=== PATIENT | female | born 1975 | race Caucasian/White ===

== ENCOUNTER 2018-06-11 08:46 | Emergency (ER) | payer OTHER ==
--- NOTE | 2018-06-11 09:42 | PDOC ---
History of Present Illness - General Chief Complaint: Palpitations Stated Complaint: PALPITATIONS Time Seen by Provider: 06/11/18 09:09 History Source: Patient Exam Limitations: No Limitations - History of Present Illness Initial Comments: 06/11/18 09:31 42 yo F pmh of anxiety, panic attacks, HTN, arthritis and fibromyalgia (on hydrocodone) presents to the ED with likely panic attack. Pt states she recently started Kratom (natural substance for anxiety and pain) at 7 30 am while scrolling through [employer] and side affects of Kratom suddenly had whole body warmth, muscle stiffness, shaking and an inability to ambulate. Pt states her prior panic attacks are similar however not as severe and this is the first time she had difficulty with ambulation. Denies any other stressors (happy with work/life balance) CP, SOB, new back pain, N/V/F/C, recent illness/travel or changes in bowel/bladder habits. Of note, pts PCP recently , pt has not had BP medications in over 2 weeks. Past History - Past Medical History Allergies/Adverse Reactions: Allergies Allergy/AdvReac Type Severity Reaction Status Date / Time Penicillins Allergy Verified 06/11/18 10:22 Home Medications: Ambulatory Orders Alprazolam [Xanax] 1 tab PO BID PRN #5 tablet MDD 2 tabs 06/11/18 Citalopram Hydrobromide [Citalopram HBr] 20 mg PO DAILY 06/11/18 Review of Systems - Review of Systems Constitutional: Yes: Other (muscle stiffiness, warmth and difficulty ambulating) . No: Chills, Fever HEENTM: No: Blurred Vision, Double Vision Respiratory: No: Shortness of Breath Cardiac (ROS): No: Chest Pain, Lightheadedness, Palpitations, Syncope ABD/GI: No: Constipated, Diarrhea, Nausea, Vomiting : No: Burning, Dysuria, Discharge, Frequency, Flank Pain Musculoskeletal: No: Back Pain Neurological: Yes: Unsteady Gait, Ataxia. No: Headache, Numbness, Tingling, Weakness *Physical Exam - Physical Exam General Appearance: Yes: Nourished, Appropriately Dressed. No: Apparent Distress HEENT: positive: EOMI, NARINDER, Normal Voice, Hearing Grossly Normal Neck: positive: Supple. negative: Carotid bruit, Tender lateral, Tender midline Respiratory/Chest: positive: Lungs Clear, Normal Breath Sounds. negative: Accessory Muscle Use, Crackles, Rales, Rhonchi, Stridor, Wheezing Cardiovascular: positive: Regular Rhythm, Regular Rate, S1, S2. negative: Edema , JVD, Murmur Vascular Pulses: Dorsalis-Pedis (R): 4+, Doralis-Pedis (L): 4+ Gastrointestinal/Abdominal: positive: Flat, Soft. negative: Pulsatile Mass, Distended, Guarding, Rebound, Tenderness Musculoskeletal: negative: CVA Tenderness Extremity: positive: Normal Capillary Refill, Normal Inspection, Normal Range of Motion Integumentary: positive: Normal Color, Dry, Warm Neurologic: positive: maintenance mechanic helper II-XII NML intact, Fully Oriented, Alert, Normal Mood/ Affect, Normal Response, Motor Strength 07/21 Medical Decision Making - Medical Decision Making 06/11/18 11:08 42 yo female presents with likely panic attack after becoming suddenly stressed out this am. Pt shaking and states she feels warm with muscle stiffness EKG NSR, no ST elevations or depressions Trial of Xanax in the ED to determine whether or not blood work is indicated pt dramatically improved after 0.5 mg of Xanax. Pt ambulating well while in the ED Pt expresses belief that she has suffered another panic attack today and in the past has intermittently required Xanax which helps relieve s/s Pt NAD, AOX3 safe for DC home Pt does not have PCP in the area, will refer her to [facility] for further primary care Pt agrees with and understands plan. *DC/Admit/Observation/Transfer Diagnosis at time of Disposition: Panic attack - Discharge Dispostion Disposition: HOME Condition at time of disposition: Good Decision to Admit order: No - Prescriptions Prescriptions: Alprazolam [Xanax] 1 tab PO BID PRN #5 tablet MDD 2 tabs PRN Reason: Anxiety - Referrals [place] [facility] [place] [facility] [place] Group] - Patient Instructions Printed Discharge Instructions: DI for Anxiety -- Adult, DI for Panic Disorder Additional Instructions: You will receive a call from the [facility] within the next 48 hours for an appointment. Please see your Psychiatrist within the next 48 hours. Please continue taking your home dosed medications as prescribed. Return to the ER for new or concerning symptoms including but not limited to: chest pain, difficulty breathing, loss of consciousness, headaches,, weakness or sensory deficits on 1 side of your body, high fevers. Thank you - Post Discharge Activity
[2018-06-11 09:53] VITALS: TEMP 98.2; BMI 30.1
[2018-06-11] MEDS ORDERED: ALPRAZolam 0.25 MG TABLET PO PRN (10:16)
--- NOTE | 2018-06-11 11:12 | PDOC ---
Attending Attestation - Resident Resident Name: Mc Reynoso - ED Attending Attestation I have performed the following: I have examined & evaluated the patient, The case was reviewed & discussed with the resident, I agree w/resident's findings & plan - HPI HPI: 06/11/18 11:08 Healthy 42-year-old female with history of anxiety disorder on citalopram, recently started an herbal anxiolytic and while reading about the side effects this morning she developed a panic attack. Typical sxs of nausea, sweating, palpitations, trembling so she activated EMS. no recent depression/si/hi - Physicial Exam PE: 06/11/18 11:10 vss much better now, initially still a bit anxious but received xanax and now resolved perrl, eomi heart regular, lungs clear abd soft neuro normal - Medical Decision Making 06/11/18 11:11 42-year-old female with history of anxiety and panic attacks presents with panic attack with trigger. Symptoms improved/resolved, no other acute psychiatric concerns. We'll refer to PCP Understands risks of increasing frequency of benzo and preference to adjust baseline site helipad dosing if necessary EKG normal <Carlos Bland - Last Filed: 06/11/18 11:07> - HPI HPI: 06/11/18 11:13 The patient is a 42 year old female, with a significant past medical history of anxiety, panic attacks, hypertension, fibromyalgia, who presents to the emergency department with sudden onset of body stiffness, shaking, and feeling flushed while reading side effects of an herbal supplement she started taking for her anxiety this morning. She denies new stressors. She states she has not had her BP medications in 2 weeks because her PCP . The patient denies chest pain, shortness of breath, headache and dizziness. The patient denies fever, chills, nausea, vomit, diarrhea and constipation. The patient denies dysuria, frequency, urgency and hematuria. Allergies: Penicillins <Geetha Vincent - Last Filed: 06/11/18 11:14> Heart Score/ECG Review #1 ECG reviewed & interpreted by me at: 08:58 General ECG Interpretation: Sinus Rhythm, Normal Rate (90), Normal Intervals ( qtc 447), No acute ischemic changes <Carlos Bland - Last Filed: 06/11/18 11:07> Attestations - Attestations 06/11/18 11:14 Documentation prepared by Geetha Vincent, acting as medical assisting program director for Carlos Bland MD <Geetha Vincent - Last Filed: 06/11/18 11:14>
[2018-06-11 12:27] VITALS: BP 134/88; PULSE 91
--- NOTE | 2018-06-11 22:00 | EKG ---
Test Reason : Blood Pressure : / mmHG Vent. Rate : 090 BPM Atrial Rate : 090 BPM P-R Int : 132 ms QRS Dur : 092 ms QT Int : 366 ms P-R-T Axes : 036 005 011 degrees QTc Int : 447 ms NORMAL SINUS RHYTHM NORMAL ECG NO PREVIOUS ECGS AVAILABLE Confirmed by MD TOMAS, KENYETTA ([id number]) on 06/11/2018 10:00:05 PM Referred By: Confirmed By:KENYETTA MARIN MD
== END 2018-06-11 12:27 | disposition home or self-care (01) ==
LOC: JER 08:46
DX: F41.0 Panic disorder [episodic paroxysmal anxiety] (principal); F41.9 Anxiety disorder, unspecified; I10 Essential (primary) hypertension; M12.9 Arthropathy, unspecified; M79.7 Fibromyalgia
CPT/HCPCS: 93005; 93010; 99282-25

== ENCOUNTER 2018-11-25 08:47 | Emergency (ER) | payer OTHER ==
[2018-11-25 08:51] VITALS: BMI 28.8
[2018-11-25] MEDS ORDERED: MAG HYDROX/AL HYDROX/SIMETH 30 ML UNIT-DOSE CUP PO ONE (10:11)
[2018-11-25] MEDS ORDERED: DICYCLOMINE HCL 20 MG TABLET PO ONE (10:11)
[2018-11-25] MEDS ORDERED: LIDOCAINE VISCOUS 2% ORAL/TOP 100 ML BOTTLE MM ONE (10:12)
[2018-11-25] MEDS ORDERED: DICYCLOMINE HCL 10 MG CAPSULE ONE (10:25)
[2018-11-25] MEDS ORDERED: LIDOCAINE VISCOUS 2% ORAL/TOP 20 ML UNIT-DOSE CUP ONE (10:26)
[2018-11-25] MEDS ORDERED: MAG HYDROX/AL HYDROX/SIMETH 30 ML UNIT-DOSE CUP ONE (10:27)
[2018-11-25 10:48] LABS: PH,URINE 7.5 (5.0-8.0); URINE APPEARANCE CLEAR; URINE BILIRUBIN NEGATIVE (NEGATIVE); URINE COLOR YELLOW; URINE GLUCOSE (UA) NEGATIVE (NEGATIVE); URINE KETONE NEGATIVE (NEGATIVE); URINE LEUK ESTERASE NEGATIVE (NEGATIVE); URINE NITRITE NEGATIVE (NEGATIVE); URINE PROTEIN NEGATIVE (NEGATIVE); URINE UROBILINOGEN 0.2 mg/dL (0.2-1.0)
[2018-11-25 11:16] LABS: ALBUMIN 3.9 g/dl (3.4-5.0); BILIRUBIN,TOTAL 0.9 mg/dL (0.2-1); BLOOD UREA NITROGEN 11.2 mg/dL (7-18); CREATININE 0.6 mg/dL (0.55-1.3); POTASSIUM 4.5 mmol/L (3.5-5.1); TOT PROT 7.4 g/dl (6.4-8.2)
[2018-11-25 11:31] LABS: BASO % 0.9 % (0-2.0); EOS % 2.3 % (0-4.5); HEMOGLOBIN 12.4 GM/dL (10.7-15.3); LYMPH % 28.6 % (8-40); MCH 30.2 pg (25.7-33.7); MCHC 33.5 g/dl (32.0-36.0); MEAN PLT VOLUME 8.1 fl (7.5-11.1); MONO % 5.2 % (3.8-10.2); PLATELET COUNT 312 K/MM3 (134-434); RBC 4.11 M/mm3 (3.60-5.2); RDW 12.9 % (11.6-15.6); WHITE BLOOD COUNT 5.2 K/mm3 (4.0-10.0)
--- NOTE | 2018-11-25 11:52 | PDOC ---
Documentation entered by Manoj Luevano SCRIBE, acting as scribe for Raymon Terrell MD. Raymon Terrell MD: This documentation has been prepared by the Chloé lopez Xhesika, SCRIBE, under my direction and personally reviewed by me in its entirety. I confirm that the documentation accurately reflects all work, treatment, procedures, and medical decision making performed by me. History of Present Illness - General Chief Complaint: Pain, Acute Stated Complaint: ABD PAIN Time Seen by Provider: 11/25/18 10:02 History Source: Patient Exam Limitations: No Limitations - History of Present Illness Initial Comments: 11/25/18 10:16 The patient is a 43 year old female with a PMH of anemia, HTN, fibromyalgia, scoliosis and arthritis who presents to the ED with 2 weeks of LUQ pain and epigastric pain. Patient describes her pain as 8-9/10 in severity, intermittent , stabbing pain, that radiates up to her back and is worsened with meals. Patient states every night when she has dinner her symptoms occur several hours later. Patient notes she took hydrocodone with mild relief of symptoms. The patient denies chest pain, shortness of breath, headache and dizziness. Denies fever, chills, cough, nausea, vomiting, diarrhea and constipation. Denies dysuria, urgency and hematuria. Allergies:,Penicillins Social Hx: Denies current smoking, drinking, or other substance usage. Neurologist: [facility] [place] Past History - Past Medical History Allergies/Adverse Reactions: Allergies Allergy/AdvReac Type Severity Reaction Status Date / Time Penicillins Allergy Verified 11/25/18 08:51 Home Medications: Ambulatory Orders Citalopram Hydrobromide [Citalopram HBr] 40 mg PO HS 06/11/18 Amlodipine/Atorvastatin [Amlodipine-Atorvast 10-10 mg] 1 each PO DAILY 11/25/18 Hydrocodone/Acetaminophen [Hydrocodon-Acetaminophn 10-325] 1 each PO QID Omeprazole 20 mg PO DAILY #30 tablet. 11/25/18 COPD: No HTN: Yes Psychiatric Problems: Yes - Suicide/Smoking/Psychosocial Hx Smoking History: Never smoked Have you smoked in the past 12 months: No Hx Alcohol Use: No Drug/Substance Use Hx: No Review of Systems - Review of Systems Able to Perform ROS?: Yes Comments:: 11/25/18 10:18 A complete review of 10 out of 10 review of systems is taken and is negative apart from what is previously mentioned below and in the HPI. *Physical Exam - Vital Signs Last Vital Signs Temp Pulse Resp BP Pulse Ox 98.3 F 69 16 119/86 97 11/25/18 08:49 11/25/18 08:49 11/25/18 08:49 11/25/18 08:49 11/25/18 08:49 - Physical Exam Comments: 11/25/18 10:18 Vitals: Triage Vital signs reviewed General Appearance: no acute distress, well nourished well developed, Head: Atraumatic, normocephalic Cardiac: Regular rate and rhythm, no murmurs, no rubs, no gallops, Lungs: Clear to auscultation bilaterally, good air movement bilaterally, Abdomen: (+) Epigastric discomfort. Soft, nondistended, normal bowel sounds. Extremities: Full range of motion to all extremities, no cyanosis, clubbing, or edema Skin: Warm and dry, no rashes or lesions, no petechiae Neuro: AOX3; Cranial Nerves 2-12 grossly c intact, Strength intact to all extremities, Sensation intact to all extremities, gait normal Psych: normal mood, normal affect ED Treatment Course - LABORATORY CBC & Chemistry Diagram: 11/25/18 10:33 11/25/18 10:33 - ADDITIONAL ORDERS Additional order review: Laboratory Results 11/25/18 11/25/18 11/25/18 10:35 10:33 10:33 Sodium 140 Potassium 4.5 Chloride 102 Carbon Dioxide 30 Anion Gap 9 BUN 11.2 Creatinine 0.6 Est GFR (CKD-EPI)AfAm 127.58 Est GFR (CKD-EPI)NonAf 110.08 Random Glucose 90 Calcium 9.0 Total Bilirubin 0.9 AST 37 ALT 38 Alkaline Phosphatase 64 Total Protein 7.4 Albumin 3.9 Lipase 160 Urine Color Yellow Urine Appearance Clear Urine pH 7.5 Ur Specific [place] 1.016 Urine Protein Negative Urine Glucose (UA) Negative Urine Ketones Negative Urine Blood Negative Urine Nitrite Negative Urine Bilirubin Negative Urine Urobilinogen 0.2 Ur Leukocyte Esterase Negative 11/25/18 10:33 RBC 4.11 MCV 90.0 MCHC 33.5 RDW 12.9 MPV 8.1 Neutrophils % 63.0 Lymphocytes % 28.6 Monocytes % 5.2 Eosinophils % 2.3 Basophils % 0.9 - Medications Given in the ED: ED Medications Discontinued Medications Generic Name Dose Route Start Last Admin Trade Name Frieda PRN Reason Stop Dose Admin Al Hydroxide/Mg Hydroxide 30 ml 11/25/18 10:11 11/25/18 10:34 Mylanta Oral Suspension - PO 11/25/18 10:12 30 ml ONCE ONE Administration Dicyclomine HCl 20 mg 11/25/18 10:11 11/25/18 10:34 Bentyl - PO 11/25/18 10:12 20 mg ONCE ONE Administration Lidocaine HCl 15 ml 11/25/18 10:12 11/25/18 10:34 Xylocaine 2% Viscous MM 11/25/18 10:13 15 ml ONCE ONE Administration Medical Decision Making - Medical Decision Making 11/25/18 11:43 2 week history of abdominal discomfort worse after meals worse in the evening Very mild epigastric discomfort on examination status post GI cocktail patient feels better will arrange for patient to follow-up with gastroenterology as well as in her medicine clinic. She will be placed on a weeklong course of omeprazole as well as Maalox Findings, the need for follow-up and strict return instructions discussed with patient. *DC/Admit/Observation/Transfer Diagnosis at time of Disposition: Abdominal pain Qualifiers: Abdominal location: epigastric Qualified Code(s): R10.13 - Epigastric pain - Discharge Dispostion Disposition: HOME Condition at time of disposition: Fair Decision to Admit order: No - Referrals Ref[place]: [facility] [place] [facility] [place] Group] Ridge Laird MD [Staff Physician] - - Patient Instructions Printed Discharge Instructions: DI for Dyspepsia Additional Instructions: Take omeprazole as prescribed. Take gooi-bun-emezryl Maalox as directed on package. Follow-up with Dr. Laird gastroenterology within 1 week. Follow-up with the [facility] this week. Return to the emergency department for any severe worsening symptoms or for any concerns. - Post Discharge Activity
[2018-11-25 13:21] VITALS: BP 115/67; PULSE 67; TEMP 98.1
== END 2018-11-25 13:19 | disposition home or self-care (01) ==
LOC: JER 08:47
DX: R10.13 Epigastric pain (principal); I10 Essential (primary) hypertension; D64.9 Anemia, unspecified; M79.7 Fibromyalgia; M12.9 Arthropathy, unspecified; M41.9 Scoliosis, unspecified
CPT/HCPCS: 36415; 80053; 81003; 83690; 85025; 87086; 99284-25

== ENCOUNTER 2019-12-11 16:36 | Emergency (ER) | payer OTHER ==
[2019-12-11 16:44] VITALS: BP 120/80; PULSE 80; TEMP 98.4; BMI 36.6
--- OUTSIDE RECORDS SUMMARY | 2019-12-11 17:07 | XMS ---
:1975 Author Organization [facility] Care Team Providers Name Role Phone Parris Huitron MD Unavailable Unavailable Regina Bedolla MD Unavailable Unavailable Re-disclosure Warning The records that you are about to access may contain information from federally- assisted alcohol or drug abuse programs. If such information is present, then the following federally mandated warning applies: This information has been disclosed to you from records protected by federal confidentiality rules (42 CFR part 2). The federal rules prohibit you from making any further disclosure of this information unless further disclosure is expressly permitted by the written consent of the person to whom it pertains or as otherwise permitted by 42 CFR part 2. A general authorization for the release of medical or other information is NOT sufficient for this purpose. The Federal rules restrict any use of the information to criminally investigate or prosecute any alcohol or drug abuse patient.The records that you are about to access may contain highly sensitive health information, the redisclosure of which is protected by Article 27-F of the [facility] Public Health law. If you continue you may haveaccess to information: Regarding HIV / AIDS; Provided by facilities licensed or operated by the [facility] Office of Mental Health; or Provided by the [facility] Office for People With Developmental Disabilities. If such information is present, then the following [facility] mandated warning applies: This information has been disclosed to you from confidential records which are protected by state law. State law prohibits you from making any further disclosure of this information without the specific written consent of the person to whom it pertains, or as otherwise permitted by law. Any unauthorized further disclosure in violation of state law may result in a fine or fpc sentence or both. A general authorization for the release of medical or other information is NOT sufficient authorization for further disclosure. Encounters Encounter Providers Location Date Indications Data Source(s ) Outpatient Attender: Parris 12/04/2019 PEL/TV FOLLOWED BY Bianka Huitron MD 04:00:00 PM SCREENING M/S RX H ospital EDT [facility] PEL/TV FOLLOWED BY SCREENING M/S RX [facility] Outpatient Attender: Parris 11/21/2019 04:00:00 JEYSON Huitron MD PM EDT [facility] Outpatient Attender: Parris 11/18/2019 04:00:00 [facility] Bianka Huitron MD PM EDT [facility] Outpatient Attender: Parris 11/14/2019 04:00:00 JEYSON [place] [facility] Bianka Huitron MD PM EDT [facility] Outpatient Attender: Parris 11/11/2019 04:30:00 JEYSON Huitron MD PM EDT [facility] Outpatient Attender: [place] 11/07/2019 05:00:00 RAD[facility] Bianka Huitron MD PM EDT [facility] Outpatient Attender: Parris 03/14/2019 04:00:00 [facility] IR[facility] DEF Bianka Huitron MD PM EST [facility] Outpatient Attender: Parris 03/11/2019 04:00:00 JEYSON [facility] DEF Bianka Huitron MD PM EST [facility] Outpatient Attender: Parris 03/06/2019 04:00:00 [facility] Bianka Huitron MD [facility] Outpatient Attender: Parris 03/04/2019 10:30:00 [facility] Bianka Huitron MD [facility] Outpatient Attender: Parris 02/28/2019 11:09:00 [facility] Bianka Huitron MD [facility] Outpatient Attender: Parris 08/08/2018 04:30:00 [facility] Bianka Huitron MD PM EDT Hospital [facility] Outpatient Attender: Parris 08/06/2018 07:37:00 [facility] Bianka Huitron MD PM EDT [facility] Hospital [facility] P Attender: Parris 08/06/2018 07:31:00 [facility] Bianka Huitron MD PM EDT [facility] Hospital [facility] Admission cancelled. Disregard status an d admitted date. Outpatient Attender: Parris 08/02/2018 02:00:00 [facility] Bianka Huitron MD PM EDT [facility] Hospital [facility] Outpatient Attender: Parris 07/30/2018 12:00:00 [facility] Bianka Huitron MD PM EDT [facility] Hospital [facility] Outpatient Attender: Parris 07/26/2018 04:30:00 [facility] Bianka Huitron MD PM EDT [facility] Hospital [facility] Outpatient Attender: Regina 07/19/2018 03:00:00 2 [facility] Bianka Bedolla MD PM EDT Hospital 2 [facility] Outpatient Attender: Regina 07/18/2018 05:38:00 [facility] Bedolla MD PM EDT Hospital [facility] Insurance Providers Payer name Policy type Policy ID Covered Covered libertarian's Policy P hanna / Coverage libertarian ID relationship to [place] Inf ormation type lower[place] [id number] PT [id number] HEALTH PLAN POS [place] [id number] PT [id number] 1 HEALTH PLAN O [place] [id number] 1 HEALTH PLANS [place] [id number] PT [id number] 1 [place] [id number] 1 [id number] [place] [id number] HEALTH PLANS Problems, Conditions, and Diagnoses Code Display Name Description Problem Type Effective Dates Data Source(s) K90.9 Intestinal K90.9 Diagnosis 12/04/2019 [place] malabsorption, 04:00:00 PM EDT Hospi abby unspecified D50.8 Other iron D50.8 Diagnosis 12/04/2019 [place] deficiency anemias 04:00:00 PM EDT H ospital N92.0 Excessive and N92.0 Diagnosis 12/04/2019 [place] frequent 04:00:00 PM EDT Hospital menstruation with regular cycle D50.9 Iron deficiency D50.9 Diagnosis 12/04/2019 [place] anemia, unspecified 04:00:00 PM EDT Hospital N63.23 Unspecified lump in N63.23 Diagnosis 12/04/2019 [place] the left breast, 04:00:00 PM EDT Hos pital lower outer quadrant R92.1 Mammographic R92.1 Diagnosis 12/04/2019 [place] calcification found 04:00:00 PM EDT Hospital on diagnostic imaging of breast Z12.31 Encounter for Z12.31 Diagnosis 12/04/2019 [place] screening mammogram 04:00:00 PM EDT Hospital for malignant neoplasm of breast Z88.2 Allergy status to Z88.2 Diagnosis 11/11/2019 [place] sulfonamides status 07:51:00 AM EDT Hospital Z87.891 Personal history of Z87.891 Diagnosis 11/11/2019 [place] nicotine dependence 07:51:00 AM EDT Hospital I10 Essential (primary) I10 Diagnosis 11/11/2019 [place] hypertension 07:51:00 AM EDT Hospita l Z98.84 Bariatric surgery Z98.84 Diagnosis 02/28/2019 [place] status 11:09:00 AM EST Hospital R53.82 Chronic fatigue, R53.82 Diagnosis 08/02/2018 [place] unspecified 02:00:00 PM EDT Hospital D64.9 Anemia, unspecified D64.9 Diagnosis 07/26/2018 [place] 08:24:00 AM EDT Hospital N94.6 Dysmenorrhea, N94.6 Diagnosis 07/18/2018 [place] unspecified 05:38:00 PM EDT Hospital
[2019-12-11] MEDS ORDERED: FAMOTIDINE 20 MG/50 ML IVPB 20 MG/50 ML MG IVPB ONE ×2 (17:42→17:51)
[2019-12-11] MEDS ORDERED: LIDOCAINE VISCOUS 2% ORAL/TOP 20 ML UNIT-DOSE CUP MM ONE (17:43)
[2019-12-11] MEDS ORDERED: MAG HYDROX/AL HYDROX/SIMETH 30 ML UNIT-DOSE CUP PO ONE (17:43)
[2019-12-11] MEDS ORDERED: SODIUM CHLORIDE 0.9% 500 ML INFUS.BAG IV ONE (17:44)
[2019-12-11] MEDS ORDERED: MAG HYDROX/AL HYDROX/SIMETH 30 ML UNIT-DOSE CUP ONE (17:51)
[2019-12-11] MEDS ORDERED: LIDOCAINE VISCOUS 2% ORAL/TOP 20 ML UNIT-DOSE CUP ONE (17:51)
--- NOTE | 2019-12-11 17:58 | PDOC ---
History of Present Illness - General Chief Complaint: Pain Stated Complaint: PAIN Time Seen by Provider: 12/11/19 17:09 History Source: Patient Exam Limitations: No Limitations - History of Present Illness Initial Comments: 12/11/19 [id number] 44-year-old female history of gastric bypass, anemia requiring weekly infusions, fibromyalgia, scoliosis, gastritis presents complaining of midepigastric pain radiating to the back, midsternal chest burning sensation x 2 days with nausea and 2 episodes of nonbloody vomiting. Denies diarrhea, fever, chills, cough, urinary complaints or any other symptoms. Patient took 1 Pepcid 20 mg p.o. this morning. ROS: as above PE: GENERAL: well-appearing, NAD HEAD: NCAT EYES: Pupils equal, round and reactive to light, sclera anicteric, conjunctiva clear ENT: pharynx: no erythema, no exudate, uvula midline NECK: supple CHEST: nontender RESP: clear, no w/r/r CARDIO: rrr, no m/g/r ABD: +BS, soft, midpepigastric ttp, no r/g BACK: no midline spinal ttp, no CVAT EXTREMITIES: Normal range of motion, no edema NEUROLOGICAL: Normal speech, normal gait SKIN: Warm, Dry Is this a multiple visit Asthma Patient?: No Past History - Medical History Allergies/Adverse Reactions: Allergies Allergy/AdvReac Type Severity Reaction Status Date / Time Penicillins Allergy Verified 12/11/19 17:44 Home Medications: Ambulatory Orders Citalopram Hydrobromide [Citalopram HBr] 40 mg PO HS 06/11/18 Amlodipine/Atorvastatin [Amlodipine-Atorvast 10-10 mg] 1 each PO DAILY 11/25/18 Hydrocodone/Acetaminophen [Hydrocodon-Acetaminophn 10-325] 1 each PO QID 11/25/18 Omeprazole 20 mg PO DAILY #30 tablet. 11/25/18 COPD: No HTN: Yes Psychiatric Problems: Yes - Reproductive History Is Patient Now?: No - Psycho-Social/Smoking History Smoking History: Never smoked Have you smoked in the past 12 months: No - Substance Abuse Hx (Audit-C & DAST Scrn) How often the patient has a drink containing alcohol: Monthly or less Number of drinks the patient has on a typical day: 1 or 2 Score: In Men: 4 or > Positive; In Women: 3 or > Positive: 1 Screen Result (Pos requires Nsg. Audit-10AR): Negative In the last yr the pt used illegal drug/Rx for NonMed reason: No Score: Yes response is considered Positive: 0 Screen Result (Positive result requires Nsg. DAST-10): Negative *Physical Exam - Vital Signs Last Vital Signs Temp Pulse Resp BP Pulse Ox 98.4 F 80 18 120/80 100 12/11/19 16:41 12/11/19 16:41 12/11/19 16:41 12/11/19 16:41 12/11/19 16:41 ED Treatment Course - LABORATORY CBC & Chemistry Diagram: 12/11/19 18:00 12/11/19 18:00 - RADIOLOGY Radiology Studies Ordered: Category Date Time Status CHEST PA & LAT [RAD] Stat Radiology 12/11/19 17:44 Ordered Medical Decision Making - Medical Decision Making 12/11/19 17:58 44-year-old female history of gastric bypass, anemia requiring weekly infusions, fibromyalgia, scoliosis, gastritis presents complaining of midepigastric pain radiating to the back, midsternal chest burning sensation x 2 days with nausea and 2 episodes of nonbloody vomiting. Denies diarrhea, fever, chills, cough, urinary complaints or any other symptoms. Patient took 1 Pepcid 20 mg p.o. this morning. IV pepcid, po maalox, viscous lidocaine IVF labs urine cxr re assess 12/11/19 19:37 Patient feels better after p.o. medication Discussed labs with patient Chest x-ray unremarkable on my wet read Patient stable for discharge Agrees to follow-up with PMD and schedule GI appointment Advised to take omeprazole 20 mg daily for 7 days Return precautions discussed Discharge - Discharge Information Problems reviewed: Yes Clinical Impression/Diagnosis: Midepigastric pain Condition: Stable Disposition: HOME - Admission No - Follow up/Referral - Patient Discharge Instructions Additional Instructions: Follow-up with GI doctor within 1 week Take omeprazole 20 mg daily for 7 days Return to ED if fever, chills, abdominal bloating, worsening abdominal pain, chest pain, shortness of breath or any concerning symptom - Post Discharge Activity
[2019-12-11 18:23] LABS: BASO % 0.7 % (0-2.0); EOS % 2.3 % (0-4.5); HEMATOCRIT 42.3 % (32.4-45.2); HEMOGLOBIN 14.5 GM/dL (10.7-15.3); LYMPH % 22.3 % (8-40); MCHC 34.3 g/dl (32.0-36.0); MEAN CELL VOLUME 93.1 fl (80-96); MEAN PLT VOLUME 7.7 fl (7.5-11.1); MONO % 4.6 % (3.8-10.2); NEUT % 70.1 % (42.8-82.8); PLATELET COUNT 343 K/MM3 (134-434); RBC 4.54 M/mm3 (3.60-5.2); RDW 13.9 % (11.6-15.6); WHITE BLOOD COUNT 10.1 K/mm3 (4.0-10.0)
[2019-12-11 18:58] LABS: ALBUMIN 3.8 g/dl (3.4-5.0); BILIRUBIN,TOTAL 0.2 mg/dL (0.2-1); BLOOD UREA NITROGEN 8.3 mg/dL (7-18); CALCIUM 8.8 mg/dL (8.5-10.1); CREATININE 0.6 mg/dL (0.55-1.3); TOT PROT 7.4 g/dl (6.4-8.2)
== END 2019-12-11 21:11 | disposition home or self-care (01) ==
LOC: JER 16:36
PROC: 3E033GC Introduction of Other Therapeutic Substance into Peripheral Vein, Percutaneous Approach (ICD-10-PCS; principal; 2019-12-11)
DX: R10.13 Epigastric pain (principal)
CPT/HCPCS: 36415; 71046-TC-FY; 80053; 83690; 85025; 99284-25